=== PATIENT | female | born 2000 | race Caucasian/White ===

== ENCOUNTER 2022-05-15 07:38 | Inpatient (IN) ==
[2022-05-15] MEDS ORDERED: OXYTOCIN 30 UNITS/500 ML BAG IV PRN ×3 (08:00→17:18)
[2022-05-15] MEDS ORDERED: LIDOCAINE 1% LOCAL 20 ML VIAL INFIL PRN (08:00)
--- NOTE | 2022-05-15 08:16 | Obstetrical Progress Note ---
Date of Service May 15, 2022 Assessment & Plan Admission and Anticipated Discharge Date Admission Date: May 15, 2022 Subjective Patient is here for IOL for post dates. at 40.5 wks with favorable cervix. She was here for DFM yesterday morning and BPP 04/29 She states baby has elmer moving well since then. No ctxs / LOF/VB Reviewed her medical history in details. No medical problems, no h/o STD's ( HSV/ Chlamydia/ GC) Denies smoking/ alcohol or Drug use Meds: PNV only NKDA Plan to start Oxytocin per protocol Epidural for pain when she desires. Continue to monitor closely. Results & Data ([facility]) Vital Signs (Past 12 Hours) Vital Signs Temp Pulse Resp BP 05/15/22 08:00 88 129/73 05/15/22 07:46 37.1 C 16
[2022-05-15] MEDS: LACTATED RINGER'S 1,000 ML IV PRN ×3 (08:37→15:48)
[2022-05-15] MEDS: metroNIDAZOLE 500 MG TAB PO SCH ×2 (08:49→21:21)
[2022-05-15 08:54] LABS: Hematocrit (blood only) 33.3 % (34.1-44.9); Hemoglobin 11.4 g/dl (12.0-16.0); Mean Corpuscular Hemoglobin 29.8 pg (25.0-34.0); Mean Corpuscular Hgb Conc 34.2 g/dL (32.0-36.0); Mean Corpuscular Volume 86.9 fL (80.0-100.0); Mean Platelet Volume 11.1 fL (9.4-12.3); Platelet Count 299 K/uL (130-400); RDW Coefficient of Variation 13.7 % (11.5-14.5); RDW Standard Deviation 43.1 fL (36.4-46.3); Red Blood Count 3.83 M/uL (3.93-5.22); White Blood Count 11.31 K/ul (4.8-10.8)
[2022-05-15] MEDS ORDERED: BUPIVACAINE 0.25% 30 ML VIAL ONE (11:28)
[2022-05-15] MEDS ORDERED: fentaNYL citrate 100 MCG/2 ML VIAL ONE (11:28)
[2022-05-15] MEDS ORDERED: LIDOCAINE 2%/EPINEPHRINE 1:200,000 20 ML SDV ONE (11:28)
[2022-05-15] MEDS ORDERED: ePHEDrine sulfate 50 MG/ML AMP ONE (11:28)
[2022-05-15] MEDS ORDERED: SODIUM CHLORIDE 0.9% INJ 10 ML VIAL ONE (11:28)
[2022-05-15] MEDS ORDERED: fentaNYL 2MCG/ML ROPIVACAINE 1.25MG/ML 100 ML BAG EPI ONE (11:29)
--- NOTE | 2022-05-15 12:29 | Anesthesiology Consultation ---
Date of Service May 15, 2022 Assessment & Plan Chart Review Chart Review: Acceptable Risk for Labor Epidural Consults Requested none History Height/Weight Height: 5 ft 7 in Weight: 74.389 kg Allergies Allergy/AdvReac Type Severity Reaction Status Date / Time cat dander Allergy Watery Eye Verified 05/15/22 08:58 house dust Allergy Congested Verified 05/15/22 08:59 Medications Home Medications Medication Instructions Recorded Confirmed Last Taken vit no.133-ferrous 1 tab PO QAM 03/01/21 05/15/22 05/14/22 08:00 fumarate 28 mg-folic acid 800 mcg tablet () Active Medications Generic Name Dose Route Start Last Admin Trade Name Freq PRN Reason Stop Dose Admin Lactated Ringer's 1,000 mls @ 150 mls/hr 05/15/22 08:00 05/15/22 12:27 Lr IV 05/17/22 07:59 150 mls/hr .[id number] PRN Infusion L&D Protocol Protocol Oxytocin 30 units in 500 mls @ 10 mls/hr 05/15/22 08:12 05/15/22 11:00 Pitocin IV 05/17/22 08:11 0.6 units/hr .Q24H PRN 10 mls/hr Labor Induction/Augmentation Titration Protocol 0.6 UNITS/HR Metronidazole 500 mg 05/15/22 09:00 05/15/22 08:49 Metronidazole 500 Mg Tab PO 05/25/22 08:59 500 mg BID DAVID Administration Past Medical History Medical History (Updated 05/15/22 @ 09:05 by Sam Mckay RN) Anemia Required two IV iron infusions during Asthma Does not use inhaler Pneumonia Remote hx (~2002) requiring ventilator x 10 days Past Family History Family History (Updated 05/15/22 @ 09:02 by Sam Mcaky RN) Grandmother (Maternal) Hypertension Thyroid cancer Mother Hypertension Aunt Thyroid cancer Other No family history of adverse response to anesthesia Past Surgical History Surgical History (Updated 05/15/22 @ 09:05 by Sam Mckay RN) H/O dilation and curettage 2020 H/O wisdom tooth extraction Social History Smoking Status: Former smoker tobacco type: cigarettes Smoking End Date: Patient says she "quit a while ago" Hx Alcohol Use: No Hx Substance Use: No substance use type: does not use Physical Exam Vital Signs Last Vital Signs Temp 36.8 C 05/15/22 12:00 Pulse 73 05/15/22 12:26 Resp 16 05/15/22 11:55 BP 118/59 L 05/15/22 12:26 Pulse Ox 99 05/15/22 12:25 Testing Laboratory Results 05/15/22 08:35
[2022-05-15] MEDS ORDERED: NALOXONE HCL 1 MG in SODIUM CHLORIDE 0.9% 1000ML 1,000 ML IV PRN (12:30)
[2022-05-15] MEDS ORDERED: NALBUPHINE HCL INJ 10 MG/ML AMP IV PRN (12:30)
[2022-05-15] MEDS ORDERED: diphenhydrAMINE 50 MG/ML VIAL IV PRN (12:30)
[2022-05-15] MEDS ORDERED: fentaNYL 2MCG/ML ROPIVACAINE 1.25MG/ML 100 ML BAG EPI PRN (12:30)
[2022-05-15] MEDS ORDERED: ePHEDrine sulfate 50 MG/ML AMP IV PRN (12:30)
[2022-05-15] MEDS ORDERED: NALOXONE HCL 0.4 MG/1 ML VIAL/CARP IV PRN (12:30)
[2022-05-15] MEDS ORDERED: ONDANSETRON INJ 2 MG/ML 2 ML VIAL IV PRN (12:30)
--- NOTE | 2022-05-15 13:47 | Communication Note ---
Date of Service: May 15, 2022 Called for pt c/o pain. Dosed epidural with 5cc 2% lidocaine with epi 1;200,000.
--- NOTE | 2022-05-15 13:48 | Obstetrical Progress Note ---
Date of Service May 15, 2022 Assessment & Plan Admission and Anticipated Discharge Date Admission Date: May 15, 2022 Subjective Patient has received epidural for pain. Comfortable. heart rate category 1, Hazen contractions every 2 to 3 minutes, oxytocin is at 10 mIU/min, Cervix is 3 to 4 cm dilated, 70% effaced, head at -2, engaged, tight amniotic membranes, AROM, abundant clear fluid was obtained, Continue to monitor closely. Results & Data ([facility]) Vital Signs (Past 12 Hours) Vital Signs Temp Pulse Resp BP Pulse Ox 05/15/22 12:00 36.8 C 05/15/22 13:45 72 98 05/15/22 13:40 81 98 05/15/22 13:37 73 116/77 05/15/22 13:35 76 99 05/15/22 13:30 83 99 05/15/22 13:25 81 99 05/15/22 13:22 78 125/67 05/15/22 13:20 85 98 05/15/22 13:15 77 99 05/15/22 13:10 73 99 05/15/22 13:07 72 116/66 05/15/22 13:05 78 99 05/15/22 13:00 73 98 05/15/22 12:55 79 100 05/15/22 12:50 79 99 05/15/22 12:48 72 16 116/66 05/15/22 12:45 86 99 05/15/22 12:43 75 16 121/60 05/15/22 12:40 82 100 05/15/22 12:39 70 16 124/67 05/15/22 12:35 85 99 05/15/22 12:32 76 16 126/62 05/15/22 12:03 16 05/15/22 12:03 16 05/15/22 12:30 83 100 05/15/22 12:26 73 16 118/59 L 05/15/22 12:25 71 99 05/15/22 12:24 70 16 117/60 05/15/22 12:22 80 16 120/59 L 05/15/22 12:20 100 05/15/22 12:20 80 05/15/22 12:20 81 119/64 05/15/22 12:18 77 16 117/64 05/15/22 12:17 85 113/65 05/15/22 12:15 85 100 05/15/22 12:14 83 16 145/69 H 05/15/22 12:10 76 100 05/15/22 12:05 85 100 05/15/22 12:02 77 128/69 05/15/22 12:00 98 H 100 05/15/22 11:55 16 05/15/22 11:55 36.8 C 16 05/15/22 11:01 80 16 123/73 05/15/22 09:54 85 16 118/69 05/15/22 09:22 83 16 116/73 05/15/22 08:00 88 129/73 05/15/22 07:46 37.1 C 16
[2022-05-15] MEDS ORDERED: MINERAL OIL 30 ML UDC ONE (16:29)
[2022-05-15] MEDS ORDERED: HYDROCORTISONE ACETATE 25 MG SUPP PR PRN (17:18)
[2022-05-15] MEDS ORDERED: BENZOCAINE 20% AER SPR 82.5 GM CAN EXT PRN (17:18)
[2022-05-15] MEDS ORDERED: oxyCODONE/ACETAMINOPHEN 5mg/325mg TAB PO PRN (17:18)
[2022-05-15] MEDS ORDERED: bisacodyL 10 MG SUPP PR PRN (17:18)
--- NOTE | 2022-05-15 17:35 | Delivery Summary ---
Vaginal Delivery Summary Date of Service May 15, 2022 Vaginal Delivery Summary Patient was found to be fluid dilated and desired to push. She pushed for about 20 to 25 minutes and delivered the head without difficulty. The shoulders were delivered with minimal traction and the hand after the mother where mouth and nose were suctioned, the cord was clamped x2 and cut at 1 minute delay. The baby was vigorously moving and crying at that point. The vagina and perineum were checked for lacerations. There was a critter laceration at defusion of labia minora extending into the labia bilaterally. And there was another small first-degree laceration at 7 o'clock position at hymenal ring. Those were repaired with 3-0 Vicryl on SH needle. Excellent hemostasis achieved. Placenta was found to be in the vagina, delivered spontaneously as intact and complete. Uterus was explored and found to be empty, the lower segment was cleared of all clots and debris's, fundus was firm and EBL was 100 ml. Mom and baby tolerated procedure well, there was a viable male infant delivered at 16 49 PM, Apgars were 8/9. No complications happened and I was present during whole procedure. At the end of the procedure the sponge needle instrument count was correct x2.
--- NOTE | 2022-05-15 17:43 | Anesthesia Procedure Note ---
Date of Service May 15, 2022 Anesthesia Post Epidural Note Vital Signs Vital Signs: Temp Pulse Resp BP Pulse Ox 36.8 C 100 H 16 122/78 98 05/15/22 16:00 05/15/22 17:37 05/15/22 16:07 05/15/22 17:37 05/15/22 16:55 Notes Mental Status: alert / awake / arousable Nausea / Vomiting: adequately controlled Pain: adequately controlled Airway Patency, RR, SpO2: stable & adequate BP & HR: stable & adequate Hydration State: stable & adequate Neuraxial Anesthesia: was administered and sensory block is resolving Anesthetic Complications: no major complications apparent and Pt Satisfied with anesthetic care Epidural: Removed without complications and With tip intact
[2022-05-15] MEDS ORDERED: MEASLES, MUMPS & RUBELLA VIRUS VIAL SQ ONE (18:00)
[2022-05-15] MEDS ORDERED: DIPHTHERIA/TETANUS/PERTUSSIS 0.5 ML SYR/VIAL IM ONE (18:00)
[2022-05-15] MEDS: IBUPROFEN 600 MG TAB PO PRN (19:04)
[2022-05-15] MEDS: DOCUSATE SODIUM 100 MG CAP PO SCH (21:21)
[2022-05-15] MEDS: ACETAMINOPHEN 325 MG TAB PO PRN (21:23)
[2022-05-16] MEDS: IBUPROFEN 600 MG TAB PO PRN ×4 (02:20→18:17)
[2022-05-16] MEDS: PRENATAL VITAMIN 1 TAB PO SCH (07:59)
[2022-05-16] MEDS: DOCUSATE SODIUM 100 MG CAP PO SCH ×2 (07:59→21:22)
[2022-05-16] MEDS: FERROUS SULFATE 325 MG TAB PO SCH (07:59)
[2022-05-16 08:04] LABS: Hematocrit (blood only) 31.2 % (34.1-44.9); Hemoglobin 10.7 g/dl (12.0-16.0); Mean Corpuscular Hemoglobin 29.8 pg (25.0-34.0); Mean Corpuscular Hgb Conc 34.3 g/dL (32.0-36.0); Mean Corpuscular Volume 86.9 fL (80.0-100.0); Mean Platelet Volume 11.5 fL (9.4-12.3); Platelet Count 277 K/uL (130-400); RDW Coefficient of Variation 13.7 % (11.5-14.5); RDW Standard Deviation 43.8 fL (36.4-46.3); Red Blood Count 3.59 M/uL (3.93-5.22); White Blood Count 13.77 K/ul (4.8-10.8)
[2022-05-16] MEDS: metroNIDAZOLE 500 MG TAB PO SCH ×2 (08:12→21:21)
--- NOTE | 2022-05-16 08:36 | Obstetrical Progress Note ---
Date of Service May 16, 2022 Subjective Ambulation: ambulating normally Voiding: no voiding problems Passing Gas:: Yes Diet Tolerance:: regular diet Lochia:: Small Feeding Type:: breast feeding Current Pain Level(1-10): 0 doing well Physical Exam Constitutional WD/WN, vitals as above Gastrointestinal (Abdomen) Inspection/Auscultation: abdomen normal to inspection abdomen soft and non-tender. fundus firm below U Musculoskeletal Extremities: extremities normal to inspection Skin no rashes, warm and dry Neurologic patellar DTR's 2+ bilat, sensation intact Psychiatric A+Ox3, euthymic affect Results & Data ([facility]) Vital Signs (Past 12 Hours) Vital Signs Temp Pulse Resp BP Pulse Ox O2 Del Method 05/16/22 02:30 36.5 C 92 H 18 135/83 99 Room Air 05/15/22 23:05 36.7 C 92 H 18 115/67 97 Room Air Laboratory Results Laboratory Results - last 48 hr 05/15/22 05/15/22 05/16/22 08:15 08:35 07:24 WBC 11.31 H 13.77 H RBC 3.83 L 3.59 L Hgb 11.4 L 10.7 L Hct 33.3 L 31.2 L MCV 86.9 86.9 MCH 29.8 29.8 MCHC 34.2 34.3 RDW Std Deviation 43.1 43.8 RDW Coeff of Jennifer 13.7 13.7 Plt Count 299 277 MPV 11.1 11.5 SARS-CoV-2, RNA, NAAT NEGATIVE
[2022-05-16] MEDS: ACETAMINOPHEN 325 MG TAB PO PRN ×2 (14:40→21:24)
[2022-05-16] MEDS ORDERED: bisacodyL 5 MG TABEC PO SCH (20:00)
[2022-05-17] MEDS: IBUPROFEN 600 MG TAB PO PRN ×3 (01:01→09:22)
[2022-05-17 07:46] LABS: Basophils # (auto) 0.04 K/uL (0-0.2); Basophils % (auto) 0.3 %; Eosinophils # (auto) 0.26 K/uL (0-0.50); Eosinophils % (auto) 2.1 %; Hematocrit (blood only) 32.5 % (34.1-44.9); Hemoglobin 11.1 g/dl (12.0-16.0); Immature Granulocytes # (auto) 0.07 K/uL (0.00-0.02); Immature Granulocytes % (auto) 0.6 %; Lymphocytes # (auto) 2.41 K/uL (1.2-3.4); Lymphocytes % (auto) 19.7 %; Mean Corpuscular Hemoglobin 29.6 pg (25.0-34.0); Mean Corpuscular Hgb Conc 34.2 g/dL (32.0-36.0); Mean Corpuscular Volume 86.7 fL (80.0-100.0); Monocytes # (auto) 0.82 K/uL (0.24-0.82); Monocytes % (auto) 6.7 %; Neutrophils # (auto) 8.65 K/uL (1.4-6.5); Neutrophils % (auto) 70.6 %; Platelet Count 300 K/uL (130-400); RDW Coefficient of Variation 13.7 % (11.5-14.5); RDW Standard Deviation 43.5 fL (36.4-46.3); Red Blood Count 3.75 M/uL (3.93-5.22); White Blood Count 12.25 K/ul (4.8-10.8)
[2022-05-17] MEDS ORDERED: FLUARIX QUADRIVALENT 0.5 ML SYR IM ONE (08:10)
--- NOTE | 2022-05-17 08:49 | Obstetrical Progress Note ---
Date of Service May 17, 2022 Assessment & Plan Admission and Anticipated Discharge Date Admission Date: May 15, 2022 Subjective Patient is seen and examined. She feels well, no complaints. Ambulating without dizziness Voiding without difficulty Tolerating regular diet with out N&V Bleeding is minimal No fever/ chills/ CP/ SOB/ N&V/ Leg pain Breast feeding without problems Lab Results 05/15/22 05/15/22 05/16/22 Range/Units 08:15 08:35 07:24 WBC 11.31 H 13.77 H (4.8-10.8) K/ul RBC 3.83 L 3.59 L (3.93-5.22) M/uL Hgb 11.4 L 10.7 L (12.0-16.0) g/dl Hct 33.3 L 31.2 L (34.1-44.9) % MCV 86.9 86.9 (80.0-100.0) fL MCH 29.8 29.8 (25.0-34.0) pg MCHC 34.2 34.3 (32.0-36.0) g/dL RDW Std Deviation 43.1 43.8 (36.4-46.3) fL RDW Coeff of Jennifer 13.7 13.7 (11.5-14.5) % Plt Count 299 277 (130-400) K/uL MPV 11.1 11.5 (9.4-12.3) fL Immature Gran % (Auto) % Neut % (Auto) % Lymph % (Auto) % Casey % (Auto) % Eos % (Auto) % Baso % (Auto) % Neut # (Auto) (1.4-6.5) K/uL Lymph # (Auto) (1.2-3.4) K/uL Casey # (Auto) (0.24-0.82) K/uL Eos # (Auto) (0-0.50) K/uL Baso # (Auto) (0-0.2) K/uL Immature Gran # (Auto) (0.00-0.02) K/uL SARS-CoV-2, RNA, NAAT NEGATIVE (NEGATIVE) 05/17/22 Range/Units 07:32 WBC 12.25 H (4.8-10.8) K/ul RBC 3.75 L (3.93-5.22) M/uL Hgb 11.1 L (12.0-16.0) g/dl Hct 32.5 L (34.1-44.9) % MCV 86.7 (80.0-100.0) fL MCH 29.6 (25.0-34.0) pg MCHC 34.2 (32.0-36.0) g/dL RDW Std Deviation 43.5 (36.4-46.3) fL RDW Coeff of Jennifer 13.7 (11.5-14.5) % Plt Count 300 (130-400) K/uL MPV 11.0 (9.4-12.3) fL Immature Gran % (Auto) 0.6 % Neut % (Auto) 70.6 % Lymph % (Auto) 19.7 % Casey % (Auto) 6.7 % Eos % (Auto) 2.1 % Baso % (Auto) 0.3 % Neut # (Auto) 8.65 H (1.4-6.5) K/uL Lymph # (Auto) 2.41 (1.2-3.4) K/uL Casey # (Auto) 0.82 (0.24-0.82) K/uL Eos # (Auto) 0.26 (0-0.50) K/uL Baso # (Auto) 0.04 (0-0.2) K/uL Immature Gran # (Auto) 0.07 H (0.00-0.02) K/uL SARS-CoV-2, RNA, NAAT (NEGATIVE) Vital Signs Temp Pulse Resp BP Pulse Ox O2 Del Method 05/17/22 01:00 36.7 C 59 L 16 133/87 99 Room Air 05/16/22 19:32 36.6 C 72 18 142/81 H 97 Room Air 05/16/22 14:45 36.4 C L 75 14 135/75 98 Room Air 05/16/22 11:45 36.7 C 64 14 126/79 98 Room Air PE: General: Alert, orientedx3, NAD Abd: soft, NT, fundus firm, below Umbilicus Perineum intact, Lochia rubra minimal Ext; NT, no edema AP: 22 yo s/p , ppd# 2 VSS Afebrile doing well Continue routine care All questions were answered Discussed when to call. D/C home , f/u in office Results & Data ([facility]) Vital Signs (Past 12 Hours) Vital Signs Temp Pulse Resp BP Pulse Ox O2 Del Method 05/17/22 01:00 36.7 C 59 L 16 133/87 99 Room Air
[2022-05-17] MEDS: PRENATAL VITAMIN 1 TAB PO SCH (09:21)
[2022-05-17] MEDS: DOCUSATE SODIUM 100 MG CAP PO SCH (09:22)
[2022-05-17] MEDS: FERROUS SULFATE 325 MG TAB PO SCH (09:22)
[2022-05-17] MEDS: metroNIDAZOLE 500 MG TAB PO SCH (09:24)
== END 2022-05-17 12:50 | disposition home or self-care (01) | DRG 807 ==
LOC: 4S1 07:38 → 4E2 19:42
DX: O70.0 First degree perineal laceration during delivery; Z37.0 Single live birth; O48.0 Post-term pregnancy